=== PATIENT | male | born 1950 | race Caucasian/White ===

== ENCOUNTER 2025-06-03 12:09 | Inpatient (IN) | payer MEDICARE, OTHER ==
[~2025-06-03] VITALS: Ht 175.3 cm; Wt 54.4 kg
[2025-06-03 12:12] VITALS: BP 145/90
[2025-06-03 13:30] VITALS: BP 144/72; TEMP 97.2; O2SAT 98
[2025-06-03] MEDS ORDERED: LORAZEPAM 1 MG TABLET PO PRN ×2 (13:45→14:00)
[2025-06-03] MEDS ORDERED: MAG HYDROX/AL HYDROX/SIMETH 30 ML LIQUID UDC PO PRN (13:45)
[2025-06-03] MEDS ORDERED: MAGNESIUM HYDROXIDE 30 ML LIQUID UDC PO PRN (13:45)
[2025-06-03] MEDS ORDERED: ACETAMINOPHEN 325 MG TABLET PO PRN (13:45)
[2025-06-03] MEDS ORDERED: ZOLPIDEM 5 MG TABLET PO PRN (14:00)
[2025-06-03] MEDS ORDERED: IPRA4AER IH (15:17)
[2025-06-03] MEDS ORDERED: LEVO75TA7 PO (15:17)
[2025-06-03] MEDS ORDERED: OLAN15TA3 PO (15:17)
[2025-06-03] MEDS ORDERED: IPRATROPIUM/ALBUTEROL SULFATE 14.7 GM INHALER INH PRN (18:45)
[2025-06-03 20:00] VITALS: BP 140/75; TEMP 98; O2SAT 96
[2025-06-04] MEDS: LEVOTHYROXINE SODIUM 75 MCG TABLET PO SCH (07:30)
[2025-06-04 07:58] LABS: PLATELET COUNT (AUTO) 305 K/uL (152-348); RED BLOOD CELL COUNT(AUTO) 4.28 MIL/uL (4.06-5.63); RED CELL DISTRIBUTION WIDTH 14.9 % (12.1-16.2); WHITE BLOOD COUNT (AUTO) 9.3 K/uL (3.6-10.2)
[2025-06-04 08:22] LABS: ASPARTATE AMINOTRANSFERASE 17 U/L (15-37); CREATININE 0.9 mg/dL (0.6-1.3); SODIUM SERUM 140 mmol/L (136-145); TOTAL PROTEIN, SERUM 7.3 g/dL (6.4-8.2); UREA NITROGEN, BLOOD 31 mg/dL (7-18)
[2025-06-04 08:54] VITALS: BP 132/96; TEMP 98.3; O2SAT 98
[2025-06-04] MEDS: NICOTINE 21 MG/24HR PATCH TD SCH (09:11)
[2025-06-04] MEDS ORDERED: IPRATROPIUM BROMIDE 0.5 MG/2.5 ML NEBU NEB PRN (09:45)
[2025-06-04] MEDS ORDERED: ALBUTEROL SULFATE 2.5 MG/ 0.5 ML NEBU NEB PRN (09:45)
[2025-06-04 16:18] VITALS: BP 118/76; TEMP 98.4; O2SAT 99
[2025-06-04] MEDS: ENSURE ENLIVE (VAN) 240 ML LIQUID PO SCH (16:45)
[2025-06-04 19:59] VITALS: BP 104/63; TEMP 98.3; O2SAT 97
[2025-06-04] MEDS: ATORVASTATIN 20 MG TABLET PO SCH (20:34)
[2025-06-04] MEDS: MIRTAZAPINE 15 MG TABLET PO SCH (20:34)
[2025-06-05 10:02] VITALS: BP 133/90; TEMP 98; O2SAT 96
[2025-06-05 15:43] VITALS: BP 154/89; TEMP 98; O2SAT 96
[2025-06-05] MEDS: LORAZEPAM 1 MG TABLET PO PRN (20:35)
[2025-06-05 21:36] VITALS: BP 189/62; TEMP 98.3; O2SAT 72
[2025-06-06 07:56] VITALS: BP 156/129; TEMP 97.9; O2SAT 86
[2025-06-06 16:10] VITALS: BP 162/98; TEMP 97.8; O2SAT 97
[2025-06-06 21:00] VITALS: BP 165/83; TEMP 98; O2SAT 97
[2025-06-06] MEDS: ZOLPIDEM 5 MG TABLET PO PRN (23:19)
[2025-06-07] MEDS: LEVOTHYROXINE SODIUM 100 MCG TABLET PO SCH (06:33)
[2025-06-07] MEDS ORDERED: LEVOTHYROXINE SODIUM 75 MCG TABLET PO SCH (07:30)
[2025-06-07] MEDS: AMLODIPINE 5 MG TABLET PO SCH (08:57)
[2025-06-07 09:02] VITALS: BP 108/87; TEMP 98; O2SAT 98
[2025-06-07 15:57] VITALS: BP 99/82; TEMP 98; O2SAT 92
[2025-06-07 20:24] VITALS: BP 197/95; TEMP 98.4; O2SAT 97
[2025-06-08 07:49] LABS: PLATELET COUNT (AUTO) 344 K/uL (152-348); RED BLOOD CELL COUNT(AUTO) 4.87 MIL/uL (4.06-5.63); RED CELL DISTRIBUTION WIDTH 14.4 % (12.1-16.2); WHITE BLOOD COUNT (AUTO) 10.4 K/uL (3.6-10.2)
[2025-06-08 08:15] LABS: ASPARTATE AMINOTRANSFERASE 26 U/L (15-37); CREATININE 1.0 mg/dL (0.6-1.3); SODIUM SERUM 136 mmol/L (136-145); TOTAL PROTEIN, SERUM 8.0 g/dL (6.4-8.2); UREA NITROGEN, BLOOD 33 mg/dL (7-18)
[2025-06-08 08:40] VITALS: BP 142/103; TEMP 98; O2SAT 92
[2025-06-08] MEDS: CYANOCOBALAMIN 1,000 MCG TABLET PO SCH (08:46)
[2025-06-08 16:13] VITALS: BP 137/69; TEMP 98; O2SAT 92
[2025-06-08 20:37] VITALS: BP 107/65; TEMP 98; O2SAT 95
[2025-06-09 08:41] VITALS: BP 107/77; TEMP 98; O2SAT 92
[2025-06-09 16:25] VITALS: BP 101/69; TEMP 98; O2SAT 92
[2025-06-09 20:15] VITALS: BP 111/71; TEMP 98.1; O2SAT 95
[2025-06-10 08:20] VITALS: BP 131/84; TEMP 98; O2SAT 92
[2025-06-10 16:40] VITALS: BP 138/85; TEMP 98; O2SAT 92
[2025-06-10 19:41] VITALS: BP 130/82; TEMP 98.1; O2SAT 95
[2025-06-11 08:41] VITALS: BP 157/86; TEMP 97.2; O2SAT 98
[2025-06-11] MEDS: HALOPERIDOL LACTATE 5 MG/1 ML VIAL IM ONE (10:11)
[2025-06-11] MEDS: diphenhydrAMINE 50 MG/1 ML VIAL IM ONE (10:11)
[2025-06-11] MEDS: LORAZEPAM 2 MG/1 ML VIAL IM ONE (10:11)
[2025-06-11 17:44] VITALS: BP 122/78; TEMP 97.6; O2SAT 98
[2025-06-11 19:43] VITALS: BP 135/65; TEMP 97.9; O2SAT 96
[2025-06-12 07:43] VITALS: BP 114/69; TEMP 98; O2SAT 98
[2025-06-12 15:25] VITALS: BP 117/79; TEMP 98; O2SAT 96
[2025-06-12 20:00] VITALS: BP 121/100; TEMP 98.6; O2SAT 94
[2025-06-13 09:15] VITALS: BP 131/89; TEMP 98; O2SAT 99
[2025-06-13 15:45] VITALS: BP 120/79; TEMP 98; O2SAT 99
[2025-06-13 19:56] VITALS: BP 130/80; TEMP 98; O2SAT 98
[2025-06-14 07:40] VITALS: BP 124/70; TEMP 98; O2SAT 96
[2025-06-14 16:07] VITALS: BP 118/69; TEMP 98; O2SAT 98
[2025-06-14 20:00] VITALS: BP 121/68; TEMP 99.2; O2SAT 93
[2025-06-15 08:22] VITALS: BP 119/89; TEMP 98; O2SAT 98
[2025-06-15 16:14] VITALS: BP 116/66; TEMP 98; O2SAT 98
[2025-06-15 20:10] VITALS: BP 169/73; TEMP 98.3; O2SAT 95
[2025-06-16 09:02] VITALS: BP 126/87; TEMP 98; O2SAT 98
[2025-06-16 16:15] VITALS: BP 120/67; TEMP 98; O2SAT 98
[2025-06-16 19:51] VITALS: BP 128/92; TEMP 98; O2SAT 95
[2025-06-17 08:23] VITALS: BP 122/68; TEMP 98; O2SAT 98
== END 2025-06-17 11:15 | DRG 885 ==
LOC: ER 12:09 → GPS 12:58
PROVIDERS: ADMIT Psychiatry & Neurology Psychiatry; ATTEND Internal Medicine
DX: F29 Unspecified psychosis not due to a substance or known physiological condition (principal); E43 Unspecified severe protein-calorie malnutrition; R64 Cachexia; E88.09 Other disorders of plasma-protein metabolism, not elsewhere classified; E11.9 Type 2 diabetes mellitus without complications; F03.93 Unspecified dementia, unspecified severity, with mood disturbance; E03.9 Hypothyroidism, unspecified; J44.9 Chronic obstructive pulmonary disease, unspecified; I10 Essential (primary) hypertension; Z68.1 Body mass index [BMI] 19.9 or less, adult; G24.01 Drug induced subacute dyskinesia; Z91.148 Patient's other noncompliance with medication regimen for other reason; E78.5 Hyperlipidemia, unspecified; J30.9 Allergic rhinitis, unspecified; Z60.8 Other problems related to social environment
CPT/HCPCS: 36415; 71045; 83735; 84100; 84443; 84484; 85025; 93005; J1200; J1630; J2060